=== PATIENT | male | born 1990 | race Caucasian/White ===

== ENCOUNTER → 2017-05-08 | Outpatient (CLI) | payer OTHER ==
--- NOTE | 2017-05-08 14:03 | RAD ---
Right ankle, three views Indication: Right ankle pain post trauma Comparison: None Findings: The ankle mortise is symmetric and the syndesmosis appears intact. No acute fracture or merritt bluxation is identified. Joint spaces appear well maintained in anatomic position. No appreciable maritza int effusion is identified. There is no gross soft tissue injury. Impression: No acute osseous abnormality. Reported By:
--- NOTE | 2017-05-08 14:05 | RAD ---
Right foot, three views. Indication: Right foot pain post trauma Comparison: None Findings: No acute fracture subluxation of the right foot is identified. There are no appreciable de generative changes. No gross soft tissue injury is identified. Impression: No acute osseous abnormality. Reported By:
== END ==
LOC: RAD 12:26
PROVIDERS: ATTEND Obstetrics & Gynecology Obstetrics
DX: S90.31XA Contusion of right foot, initial encounter (principal); X58.XXXA Exposure to other specified factors, initial encounter
CPT/HCPCS: 73610; 73630